=== PATIENT | female | born 2000 | race African-American/Black ===

== ENCOUNTER 2019-12-31 11:47 | Emergency (ER) | payer OTHER ==
[~2019-12-31] VITALS: Ht 170.2 cm; Wt 90.7 kg
[2019-12-31 12:01] VITALS: Ht 170.2 cm; Wt 90.7 kg
[2019-12-31 12:42] VITALS: BP 116/73
== END 2019-12-31 12:42 | disposition home or self-care (01) ==
LOC: ED 11:47
DX: L02.411 Cutaneous abscess of right axilla (principal); J45.909 Unspecified asthma, uncomplicated; Z48.01 Encounter for change or removal of surgical wound dressing; Z86.2 Personal history of diseases of the blood and blood-forming organs and certain disorders involving the immune mechanism

== ENCOUNTER 2020-01-10 09:45 | Emergency (ER) | payer OTHER ==
[~2020-01-10] VITALS: Ht 170.2 cm; Wt 91.2 kg
[2020-01-10 09:52] VITALS: BP 116/69; Ht 170.2 cm; Wt 91.2 kg
== END 2020-01-10 10:18 | disposition home or self-care (01) ==
LOC: ED 09:45
DX: L02.411 Cutaneous abscess of right axilla (principal)